=== PATIENT | male | born 1940 | race Caucasian/White ===

== ENCOUNTER 2016-05-06 14:30 | Inpatient (IN) | payer MEDICARE, OTHER ==
--- NOTE | 2016-06-25 14:34 | HP ---
HISTORY AND PHYSICAL: DATE OF SURGERY: 07/01/16 PROCEDURE: Left total knee arthroplasty. CHIEF COMPLAINT: Left knee pain. HISTORY OF PRESENT ILLNESS: Mr. Marie is a 75-year-old gentleman with complaints of left knee pain. He has failed conservative management and has elected to proceed with a left total knee arthroplas ty which is scheduled for 07/01/[address] Weaver. PAST MEDICAL HISTORY: Hypertension, history of stroke. PAST SURGICAL HISTORY: Denies. CURRENT MEDICATIONS: 1. Aspirin. 2. Atorvastatin. 3. Cartia. 4. Metoprolol. 5. Benazepril. ALLERGIES: No known drug allergies. FAMILY HISTORY: Heart disease and hypertension. SOCIAL HISTORY: He is a 75-year-old gentleman, he lives alone. 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 He does not smoke, use drugs or alcohol. REVIEW OF SYSTEMS: A complete 14-point review of systems was reviewed with the patient, it is posit mainor for having a stroke 5 years ago. PHYSICAL EXAMINATION GENERAL: He is well developed, well nourished, he is in no acute distress. VITAL SIGNS: He stands 5 feet 11 inches tall, weighs 185 pounds. Blood pressure 162/90, heart rate 69. HEENT: Normocephalic, atraumatic. NECK: Supple. No palpable lymph nodes. Trachea is midline. PULMONARY: Lungs are clear to auscultation. No wheezes, rhonchi or rales. CARDIO: Regular rate and rhythm. Strong S1, S2. No murmurs, gallops or rubs. No peripheral edema . ABDOMEN: Soft, nontender, nondistended. MUSCULOSKELETAL: Left lower extremity the skin is intact. He has a mild-to- moderate joint effusio n and tenderness over the medial and lateral joint line. He has 2+ dorsalis pedis pulses, intact se nsation and his lower extremity muscle group strengths are intact at 5/5. NEUROLOGIC: He is alert and oriented x3. Cranial nerves II through XII are intact. ASSESSMENT AND PLAN: Mr. Marie is a 75-year-old gentleman with complaints of left knee pain second zan to advanced osteoarthritis. He has failed conservative management and has elected to proceed wi th a left total knee arthroplasty which is scheduled for 07/01/[address] Weaver discuss ed the risks and the benefits of the surgery at today's visit and all of his questions were answered . Percocet, Coumadin and Colace were sent to his pharmacy for postoperative pain control and DVT pro phylaxis. He will see Dr. Weaver back 10 to 14 days after the surgery. ALESSIO KAUR [id number]/[facility] #: [id number]
[2016-07-01] MEDS ORDERED: Famotidine IV* 10 MG/ML 2 ML (20 mg) IV ONE (06:00)
[2016-07-01] MEDS ORDERED: Buffered Lidocaine 1% SYRIN* 3 ML/SYR SYRINGE INTRADERM ONE (06:00)
[2016-07-01] MEDS ORDERED: Dexamethasone IV* 4 MG/ML 1 ML (4 MG) IV SLOW PU ONE (06:00)
[2016-07-01] MEDS ORDERED: Potassium Chlor TAB* 20 MEQ TAB.ER PO ONE (07:00)
[2016-07-01] MEDS ORDERED: Famotidine IV* 10 MG/ML 2 ML (20 mg) ONE (11:47)
[2016-07-01] MEDS ORDERED: Dexamethasone IV* 4 MG/ML 1 ML (4 MG) ONE (11:48)
[2016-07-01] MEDS ORDERED: ceFAZolin 2 GM PREMIX(*) 2 GM/50 ML BAG IVPB ONE (11:48)
[2016-07-01] MEDS ORDERED: Morphine PF AMP (0.5MG/ML)* 5 MG/10 ML AMP ONE (14:20)
[2016-07-01] MEDS ORDERED: fentaNYL* 50 MCG/ML 2 ML VIAL (100 MCG VIAL) ONE (14:20)
[2016-07-01] MEDS ORDERED: Midazolam* 1 MG/ML 5 ML VIAL (5 MG) ONE (14:20)
[2016-07-01] MEDS ORDERED: Bupivacaine 0.5% SDV PF* 30 ML VIAL ONE (14:20)
[2016-07-01] MEDS ORDERED: Lidocaine 2% PF* 5 ML VIAL ONE (15:16)
[2016-07-01] MEDS ORDERED: Propofol* 10 MG/ML 20 ML BTL IV PUSH ONE (15:16)
[2016-07-01] MEDS ORDERED: oxyCODONE/Acetamin 5/325 MG* TAB PO PRN ×2 (15:41→15:42)
[2016-07-01] MEDS ORDERED: PROCHLORPERAZINE INJ 5 MG/ML 2 ML VIAL IV PRN ×2 (15:41→15:47)
[2016-07-01] MEDS ORDERED: fentaNYL* 50 MCG/ML 2 ML VIAL (100 MCG VIAL) IV PRN (15:41)
[2016-07-01] MEDS ORDERED: EPHEDrine (Pressors)* 50 MG/ML VIAL IV PUSH PRN (15:42)
[2016-07-01] MEDS ORDERED: Lactated Ringers 500 ml BAG* 500 ML IV PRN (15:42)
[2016-07-01] MEDS ORDERED: Ondansetron INJ* 2 MG/ML VIAL IV PRN (15:47)
[2016-07-01] MEDS ORDERED: Scopolamine 1.5 mg* PATCH TRANSDERM PRN (15:47)
[2016-07-01] MEDS ORDERED: Naloxone* 0.4 MG/ML 1 ML VIAL IV PRN (15:47)
[2016-07-01] MEDS ORDERED: Midazolam* 1 MG/ML 2 ML VIAL (2 MG) ONE (16:37)
[2016-07-01] MEDS ORDERED: Ropivacaine 0.2% EPIDURAL* 200 MG/100 ML BAG EPIDURAL ONE (17:17)
[2016-07-01] MEDS: Ropivacaine 0.2% EPIDURAL* 200 MG/100 ML BAG EPIDURAL SCH ×2 (17:55→18:47)
[2016-07-01] MEDS ORDERED: Polyethylene Glycol 3350* 17 GM PACKET PO PRN (17:58)
[2016-07-01] MEDS ORDERED: LACTULOSE* 30 ML UDC PO PRN (17:58)
[2016-07-01] MEDS ORDERED: Bisacodyl SUPP* 10 MG SUPP PR PRN (17:58)
--- NOTE | 2016-07-01 19:45 | RAD ---
INDICATION: Status post left total knee arthroplasty COMPARISON: Preoperative radiograph dated the TECHNIQUE: 2 view radiograph of the left knee. FINDINGS: The left knee prosthesis is anatomically aligned. There is no evidence of periprostatic fracture. Expected postoperative findings include placement of a surgical drain. IMPRESSION: Anatomically aligned left knee prosthesis.
[2016-07-01] MEDS ORDERED: Warfarin TAB(*) 6 MG PO ONE (22:00)
[2016-07-01] MEDS: Magnesium Hydroxide LIQ* 30 ML UDC PO SCH (22:25)
[2016-07-01] MEDS: Docusate CAP* 100 MG PO SCH (22:25)
[2016-07-01] MEDS: ceFAZolin 1 GM in Dextrose (*) 1 GM/50 ML BAG IVPB SCH (22:25)
[2016-07-02] MEDS: Acetaminophen TAB* 325 MG PO PRN ×2 (05:45→22:36)
[2016-07-02] MEDS: oxyCODONE TAB* 5 MG TAB PO PRN ×2 (05:46→12:49)
[2016-07-02] MEDS ORDERED: diPHENhydraMINE IV* 50 MG/ML 1 ml VIAL (BENADRYL) IV PRN (06:00)
[2016-07-02] MEDS ORDERED: diPHENhydraMINE PO* 25 MG PO PRN (06:00)
[2016-07-02] MEDS: ceFAZolin 1 GM in Dextrose (*) 1 GM/50 ML BAG IVPB SCH ×2 (06:32→14:53)
[2016-07-02 06:56] LABS: Hematocrit 31 % (42-52); Hemoglobin 10.4 g/dl (14.0-18.0)
[2016-07-02] MEDS ORDERED: Morphine INJ* 10 MG/ML 1 ML SYRINGE IV PRN (07:00)
[2016-07-02] MEDS ORDERED: Ondansetron TAB* 4 MG PO PRN (07:00)
[2016-07-02] MEDS ORDERED: oxyCODONE/Acetamin 5/325 MG* TAB PO PRN (07:00)
[2016-07-02] MEDS ORDERED: Ondansetron INJ* 2 MG/ML VIAL IV PRN (07:00)
[2016-07-02 07:13] LABS: BUN/Creatinine Ratio 26.9 (8-20); Calcium 8.6 mg/dL (8.6-10.3); EGFR African American 101.3 (>60); EGFR Non-African American 78.8 (>60); Potassium 3.5 mmol/L (3.5-5.0)
--- NOTE | 2016-07-02 07:49 | PN ---
Progress Note - Progress Note SOAP: Subjective: Pt. reports pain is controlled. Objective: LLE - drain removed, tip intact with 250 cc ss drainage. distally nvi with +df/ pf, full sens lt, 2+dp pulse. Vital Signs: Temp Pulse Resp BP Pulse Ox 97.3 F 58 18 111/61 100 07/02/16 03:19 07/02/16 03:19 07/02/16 05:46 07/02/16 03:19 07/02/16 03:19 Laboratory Results - last 24 hr 07/02/16 07/02/16 07/02/16 06:36 06:36 06:36 Hgb 10.4 L Hct 31 L INR (Anticoag Therapy) 1.11 Sodium 141 Potassium 3.5 Chloride 107 Carbon Dioxide 28 Anion Gap 6 BUN 25 H Creatinine 0.93 Est GFR ( Amer) 101.3 Est GFR (Non-Af Amer) 78.8 BUN/Creatinine Ratio 26.9 H Glucose 136 H Calcium 8.6 Assessment: 75 yo M pod 1 s/p LTKA Plan: wbat lle pt/ot 10 mg coumadin tonight with lovenox bridge. plan d/c to home with vns
[2016-07-02] MEDS: Magnesium Hydroxide LIQ* 30 ML UDC PO SCH ×2 (08:53→22:36)
[2016-07-02] MEDS: Docusate CAP* 100 MG PO SCH ×2 (08:53→22:36)
[2016-07-02] MEDS: Lisinopril TAB* 10 MG PO SCH (08:55)
[2016-07-02] MEDS: Metoprolol Tartrate TAB* 100 MG TAB PO SCH (08:55)
[2016-07-02] MEDS: Diltiazem CD CAP* 180 MG PO SCH (08:55)
[2016-07-02] MEDS: Hydrochlorothiazide TAB* 25 MG PO SCH (08:55)
[2016-07-02] MEDS ORDERED: Warfarin TAB(*) 10 MG PO ONE (17:00)
[2016-07-02] MEDS: Atorvastatin* 20 MG TAB PO SCH (17:30)
[2016-07-02] MEDS: Enoxaparin(*) 30 MG/0.3 ML SYR SUBCUT SCH (17:30)
[2016-07-02] MEDS ORDERED: Lactated Ringers 500 ml BAG* 500 ML IV ONE (18:40)
--- NOTE | 2016-07-03 02:48 | OP ---
DATE OF OPERATION: 07/01/16 - ROOM #350 DATE OF : 38 ATTENDING SURGEON: Dayana Weaver MD. GIS SPECIALIST: ALESSIO Flores. ANESTHESIOLOGIST: Dr. Gottlieb. ANESTHESIA: Spinal epidural. PRE-OP DIAGNOSIS: Severe endstage degenerative osteoarthritis of the left knee joint. POST-OP DIAGNOSIS: Severe endstage degenerative osteoarthritis of the left knee joint with large osteochondral defect in the medial femoral condyle. OPERATIVE PROCEDURE: Left total knee arthroplasty. TOURNIQUET TIME: 59 minutes. ESTIMATED BLOOD LOSS: 300 cc. COMPLICATIONS: None. SPECIMEN: Bone and cartilage from the left knee joint sent to pathology. HARDWARE USED: A [employer] cemented total knee arthroplasty hardware. For the femur, a size 7 left posterior stabilized femoral component. For the tibia, a size 7 left tibial baseplate. For the insert, a 9-mm posterior stabilized articular insert, and for the patella, a 38 mm 3-peg all poly patella. Two packages of Simplex bone cement were used. BRIEF HISTORY/INDICATION: Mr. Marie is a 75-year-old male with a longstanding history of increasingly severe left knee pain. He failed conservative treatment with antiinflammatories, pain medications, physical therapy, ambulatory assistive devices, and intraarticular injections. Radiographs confirmed hlau-up-utdh arthritis in the medial joint space. He elected to undergo a left total knee arthroplasty due to continued pain and decreased quality of life. Informed consent was obtained from the patient. He understood the risks of surgery included, but were not limited to, bleeding, infection, damage to nearby structures, continued pain, need for further surgery , intraoperative fracture, nerve palsy, hardware failure, loosening, knee stiffness or loss of motion, stroke, heart attack, blood clot, and . He wished to proceed. INTRAOPERATIVE FINDINGS: Intraoperatively, the patient had severe flexion contracture of 20% degrees with 120 degrees of flexion. Postop range of motion was full extension to 125 degrees of flexion. The patient was noted to have severe tricompartmental loss of cartilage. The medial femoral condyle was striking in that it had a large free fragment, which appeared to be an osteochondral defect fragment which involved the majority of the medial femoral condyle. This piece was essentially loose upon opening the knee joint. DESCRIPTION OF PROCEDURE: Mr. Marie was identified in the preanesthesia unit. His left lower extremity was marked as the correct operative side. Informed consent was signed and placed in the chart. The patient was taken to the operating room and placed under spinal epidural anesthesia. A Jacobs catheter was placed. Tourniquet was placed on the left thigh. The left lower extremity was prepped and draped in the usual sterile fashion. Preop time-out was made to correctly identify the patient's side and site. Appropriate perioperative antibiotics were given within 1 hour of incision. Tourniquet was inflated and a 14 cm midline incision was made with a skin blade. A new 10 blade was used to make a standard medial parapatellar arthrotomy. The patella was subluxed laterally. Electrocautery was used to subperiosteally elevate soft tissue off the superomedial tibia to the mid sagittal plane. The knee was flexed up. It was immediately noticed that there was a large free fragment of cartilage along the entire medial femoral condyle. This was easily removed and there was exposed subchondral bone. The anterior horn of the lateral meniscus and ACL were sharply released. A drill was used to enter the distal femur. Intramedullary distal femoral cutting guide was then pinned into proper position. 11 mm of distal femoral bone was carefully removed with an oscillating saw. The external rotation guide was placed on the distal femur and the femur was sized to a size 7. Size 7 femoral cutting guide, multi-cutting jig was pinned on the distal femur. Oscillating saw was used to make the appropriate 4 chamfer cuts. Any bony fragments were carefully removed. The PCL was completely released. The tibia was subluxed anteriorly. Extramedullary tibial cutting guide was pinned on the proximal tibia. Oscillating saw was used to make a proximal tibial cut perpendicular to the mechanical axis of the tibia. The tibial bone was carefully removed. The knee was brought out into full extension. There was good medial and lateral ligamentous balancing. There was good flexion and extension gaps balancing. The knee was flexed up. Lamina grid operator was placed both medially and laterally. Any remaining meniscus was carefully removed with electrocautery. Any posterior osteophytes were removed with a curved osteotome. A size 7 left femoral trial was impacted on to the distal femur and had good fit. The box for the posterior stabilized implant was prepared using a reamer and box cut osteotome. Size 7 tibial trial and 9-mm insert trial were placed. The knee was taken through a range of motion. The knee had full extension and 130 degrees of flexion with good patellofemoral tracking. The patella was everted, 9 mm of patellar bone and cartilage was carefully removed using an oscillating saw. The patella was sized to a size 38. Three peg holes were drilled through the size 38 guide. A trial 38 patella was placed and the knee was taken through a range of motion. There was satisfactory patellofemoral tracking. All trials were carefully removed. The tibia was subluxed anteriorly and sized to a size 7. Tibia was prepared using a size 7 keel punch. All bony cut surfaces were copiously irrigated with sterile saline at this point. The final implants were cemented into place, starting with the tibia followed by the femur and last the patella. The tourniquet was turned down at 59 minutes. The cement was allowed to fully cure. The knee was copiously irrigated with sterile saline. Once the cement had fully cured, the insert trial was removed. Any extra cement was carefully removed. Electrocautery was used to obtain meticulous hemostasis. Final insert chosen was a 9 mm posterior stabilized articular insert. This was locked into position on the tibial tray. The stability of the insert was checked and rechecked and noted to be stable. The knee was copiously irrigated with sterile saline. The extensor mechanism was closed using interrupted #1 Vicryls over a medium Hemovac drain. The rest of the incision was closed in a layered fashion using 0 and 2-0 Vicryls. The skin was closed using running 3-0 nylon suture. Sterile Xeroform, 4x4's, and Webril were used to cover the incision. Ignacio wrap and cold pack were placed over this. The patient's anesthesia was reversed without difficulty. He was taken to the PACU in stable condition. Intended weightbearing will be weightbearing as tolerated. Intended DVT prophylaxis will be Coumadin with a Lovenox bridge. [id number]/[facility] #: [id number] LYRIC
[2016-07-03 06:41] LABS: Hematocrit 27 % (42-52); Hemoglobin 9.1 g/dl (14.0-18.0)
[2016-07-03] MEDS: Metoprolol Tartrate TAB* 100 MG TAB PO SCH (09:31)
[2016-07-03] MEDS: Hydrochlorothiazide TAB* 25 MG PO SCH (09:31)
[2016-07-03] MEDS: Lisinopril TAB* 10 MG PO SCH (09:31)
[2016-07-03] MEDS: Docusate CAP* 100 MG PO SCH ×2 (09:31→19:39)
[2016-07-03] MEDS: Diltiazem CD CAP* 180 MG PO SCH (09:31)
[2016-07-03] MEDS: Magnesium Hydroxide LIQ* 30 ML UDC PO SCH ×2 (09:31→19:39)
--- NOTE | 2016-07-03 14:57 | PN ---
Progress Note - Progress Note SOAP: Subjective: []Patient seen at bedside. Doing well. Pain well managed. Wants to go home today. Objective: [] Vital Signs Temp 98.3 F 07/03/16 11:28 Pulse 69 07/03/16 11:28 Resp 16 07/03/16 11:28 BP 130/67 07/03/16 11:28 Pulse Ox 97 07/03/16 11:28 Intake & Output 07/02/16 07/03/16 07/03/16 18:59 06:59 18:59 Intake Total 1573 1940 Output Total 75 1175 450 Balance 1498 765 -450 Intake: IV Fluids 1053 500 ABX - CEFAZOLIN 128 LR 925 500 Oral 520 1440 Output: Urine 0 1175 450 Jacobs 75 Other: Estimated Void Small # Voids 1 Laboratory Results - last 24 hr 07/03/16 07/03/16 06:12 06:12 Hgb 9.1 L Hct 27 L INR (Anticoag Therapy) 1.68 H left knee dressings taken down, moderate old bloody drainage where drain was removed yesterday. wound benign with minimal swelling calf non tender and soft neuro intact distally +DF/PF Assessment: []s/p left total knee arthroplasty POD #2 Plan: []Discharge home today Coumadin, 4 mg , 4 mg Thursday, 2mg Sat, 2mg Thursday follow up in 10-[address] Weaver
[2016-07-03] MEDS: Acetaminophen TAB* 325 MG PO PRN (15:47)
[2016-07-03] MEDS: Enoxaparin(*) 30 MG/0.3 ML SYR SUBCUT SCH ×2 (15:47→18:19)
[2016-07-03] MEDS ORDERED: Warfarin TAB(*) 4 MG PO ONE (18:15)
[2016-07-03] MEDS: Atorvastatin* 20 MG TAB PO SCH (18:26)
--- NOTE | 2016-07-04 06:03 | DS ---
DISCHARGE SUMMARY: DATE OF ADMISSION: 07/01/16 DATE OF DISCHARGE: 07/03/16 ATTENDING PHYSICIAN: Dayana Weaver MD ADMISSION DIAGNOSIS: Severe end-stage osteoarthritis of the left knee. DISCHARGE DIAGNOSIS: Severe end-stage degenerative arthritis of the left knee with large osteochondral defect in the medial femoral condyle. SURGERY PERFORMED: Left total knee arthroplasty. HOSPITAL COURSE: The patient is a 75-year-old male, suffered with long- standing increasingly severe left knee pain. He failed conservative management with antiinflammatories, pain medications, physical therapy, ambulatory assistive devices, and intraarticular cortisone injections. His plain films revealed bone-on- bone osteoarthritis in the medial joint compartment. He elected to proceed with surgical intervention and was taken to the operating room under the care of Dr. Dayana Weaver on the date of 07/01/16. He tolerated the procedure well. He left the operating room in stable condition. Postoperatively, he progressed satisfactorily with his physical therapy and occupational therapy goals. He had no postoperative complications and was found to be medically and orthopedically stable for discharge to home on the date of 07/03/16. CONDITION ON DISCHARGE: He was afebrile and his vital signs were stable. His left knee incision was healing without evidence of infection. There was minimal swelling. His calf was soft and nontender. His neurovascular status was intact with active dorsiflexion and plantarflexion of his left ankle; 2+ pedal pulse. PLAN: The patient is to be discharged to home today, 07/03/16. He will continue with Coumadin medication as prescribed preoperatively. He will take 4 mg of Coumadin this evening, 07/03/16; 4 mg 07/04/16; 2 mg Thursday, 11/13; and 2 mg on 07/06/16. He will have biweekly blood draws on Mondays and and will be instructed of his Coumadin dosage Thursday the 07 of July. He will use the Colace and oxycodone as previously prescribed. We recommend a followup with Dr. Weaver in 10 to 14 days in the office. He is instructed to call the office if he has increased knee pain, swelling, erythema , calf pain, or swelling. All questions were answered. addendum: Mr. Marie had no transportation home. On pod 3 he felt unsafe to go home alone and was discharged to [facility]. Please see Yamileth MCCALLUM d/ c note. ALESSIO MCCANN [id number]/[facility] #: [id number] MTDD
[2016-07-04 07:16] LABS: Hematocrit 26 % (42-52); Hemoglobin 8.7 g/dl (14.0-18.0)
[2016-07-04] MEDS: Docusate CAP* 100 MG PO SCH ×2 (08:00→09:04)
[2016-07-04] MEDS: Magnesium Hydroxide LIQ* 30 ML UDC PO SCH (08:00)
[2016-07-04] MEDS: Acetaminophen TAB* 325 MG PO PRN (09:02)
--- NOTE | 2016-07-04 09:02 | PN ---
Progress Note - Progress Note SOAP: Subjective: pt OOB to chair with moderate left knee pain Objective: Vital Signs Temp Pulse Resp BP Pulse Ox 99.5 F 82 16 144/63 95 07/04/16 03:51 07/04/16 03:51 07/04/16 03:51 07/04/16 03:51 07/04/16 03:51 Laboratory Last Values Hgb 8.7 g/dl (14.0-18.0) L 07/04/16 06:54 Hct 26 % (42-52) L 07/04/16 06:54 INR (Anticoag Therapy) 2.93 (0.89-1.11) H 07/04/16 06:54 Sodium 141 mmol/L (133-145) 07/02/16 06:36 Potassium 3.5 mmol/L (3.5-5.0) 07/02/16 06:36 Chloride 107 mmol/L (101-111) 07/02/16 06:36 Carbon Dioxide 28 mmol/L (22-32) 07/02/16 06:36 Anion Gap 6 mmol/L (2-11) 07/02/16 06:36 BUN 25 mg/dL (6-24) H 07/02/16 06:36 Creatinine 0.93 mg/dL (0.67-1.17) 07/02/16 06:36 Est GFR ( Amer) 101.3 (>60) 07/02/16 06:36 Est GFR (Non-Af Amer) 78.8 (>60) 07/02/16 06:36 BUN/Creatinine Ratio 26.9 (8-20) H 07/02/16 06:36 Glucose 136 mg/dL (70-100) H 07/02/16 06:36 Calcium 8.6 mg/dL (8.6-10.3) 07/02/16 06:36 incision: c/d PE: intact sensation B/L LE, able to move foot and toes well B/L, 2+DP Assessment: s/p left TKA Plan: 1) continue PT/OT-WBAT 2) Coumadin/ Lovenox for DVT prophylaxis; INR today 2.93, will hold coumadin tonight 3) SNF consult
[2016-07-04] MEDS: Diltiazem CD CAP* 180 MG PO SCH (09:03)
[2016-07-04] MEDS: Metoprolol Tartrate TAB* 100 MG TAB PO SCH (09:03)
[2016-07-04] MEDS: Lisinopril TAB* 10 MG PO SCH (09:03)
[2016-07-04] MEDS: Hydrochlorothiazide TAB* 25 MG PO SCH (09:03)
--- NOTE | 2016-07-04 13:41 | DS ---
DISCHARGE SUMMARY: DATE OF ADMISSION: 07/01/16 DATE OF DISCHARGE: 07/04/16 SURGEON: Dr. Dayaan Weaver. DIAGNOSIS: Severe end-stage degenerative osteoarthritis of the left knee. DISCHARGE DIAGNOSIS: Severe end-stage degenerative osteoarthritis of the left knee. OPERATIVE PROCEDURE: Left total knee arthroplasty. HISTORY OF PRESENT ILLNESS: Mr. Marie is a 75-year-old gentleman with severe end- stage osteoarthri tis of his left knee. He has failed conservative management and elected to proceed with a left tota l knee arthroplasty, which was completed 07/01/16. He tolerated the procedure well. HOSPITAL COURSE: Mr. Marie underwent a left total knee arthroplasty on 07/01/16. He tolerated the p rocedure well with no complications. His postoperative course was fairly unremarkable. He was star kory on Lovenox, as well as Coumadin for DVT prophylaxis. On postoperative day #1, his H and H were 10.4 and 31. On postop day #2, his H and H were 9.1 and 27. On postop day #3, H and H were 8.7 and 26. His vital signs remained stable. His INR went from 1.1 on postop day #1 to 1.68 on postoperat mainor day #2, and 2.93 on postoperative day #3. He made daily improvements with physical therapy and the remainder of his hospital course is unremarkable. DISCHARGE MEDICATIONS: 1. Lipitor. 2. Dulcolax. 3. Cardizem. 4. Colace. 5. Hydrochlorothiazide. 6. Lisinopril. 7. Metoprolol. 8. Coumadin. 9. Percocet. PHYSICAL EXAMINATION UPON DISCHARGE: He was afebrile. His vital signs were stable. His wound was clean and dry. No signs of infection and intact bilateral lower extremity strength. 2+ dorsalis pe dis pulses and intact sensation. ASSESSMENT AND PLAN: Mr. Marie is a 75-year-old gentleman who underwent a left total knee arthropla sty on 07/01/16. His hospital course was unremarkable and at the time of discharge, on 07/04/16, he was afebrile. His wound was clean and dry. He will be transferred to [facility] for continued [facility]. Dr. Weaver would like to see him back in her clinic in 10 to 14 days. He will remain on Coumadin nightly. However, since his last INR was 2.93, we are going to hold the Coumadin for this evening. He will take 2 mg Thursday night and 2 mg Thursday night and will have his INR rec hecked on Thursday. He is able to shower at this point. He just cannot take any baths or soak in a h ot tub or pool. He can let the soap and water run over the incision, pat the area dry, and redress with a clean dry dressing. Please have him call our office if any questions or concerns. Otherwise, we will see him at his followup visit with Dr. Weaver in 2 weeks. ALESSIO KAUR [id number]/[facility] #: [id number]
[2016-07-04] MEDS ORDERED: Scopolomine PATCH Remove* 1 NOTE MISC PATCH OFF ONE (15:47)
[2016-07-04 16:10] VITALS: BP 128/67
== END 2016-07-04 16:20 | DRG 470 ==
LOC: AA 07-01 11:35 → SSU 07-01 20:15
PROVIDERS: ADMIT Orthopaedic Surgery Adult Reconstructive Orthopaedic Surgery; ATTEND Orthopaedic Surgery Adult Reconstructive Orthopaedic Surgery
PROC: 0SRD0J9 Replacement of Left Knee Joint with Synthetic Substitute, Cemented, Open Approach (ICD-10-PCS; principal; 2016-07-01 13:45)
DX: M17.12 Unilateral primary osteoarthritis, left knee (principal); I10 Essential (primary) hypertension; Z79.01 Long term (current) use of anticoagulants; Z82.49 Family history of ischemic heart disease and other diseases of the circulatory system; Z86.73 Personal history of transient ischemic attack (TIA), and cerebral infarction without residual deficits; M21.952 Unspecified acquired deformity of left thigh
CPT/HCPCS: 36415; 62327; 80048; 85014; 85018; 85610; 94760; A9270-GY; C1776; J0690; J1100; J1650; J2250; J2405; J2704; J2795; J3010